=== PATIENT | male | born 1950 | race Hispanic/Latino ===

== ENCOUNTER → 2018-06-29 | Outpatient (CLI) | payer OTHER ==
[~2018-06-29] MED LIST: REGADENOSON 0.4 MG/5 ML PF SYG IVP SCH
== END | disposition home or self-care (01) ==
LOC: SHCH 08:30
PROVIDERS: ATTEND Internal Medicine Cardiovascular Disease
DX: M79.603 Pain in arm, unspecified (principal); Z95.1 Presence of aortocoronary bypass graft
CPT/HCPCS: 78452; 93017; 96374; A9500 ×2; J2785

== ENCOUNTER → 2020-05-12 | Outpatient (CLI) | payer OTHER | END | disposition home or self-care (01) | LOC: RAH 08:46 | PROVIDERS: ATTEND Physical Medicine & Rehabilitation | DX: M16.12 Unilateral primary osteoarthritis, left hip (principal); M99.04 Segmental and somatic dysfunction of sacral region; M85.88 Other specified disorders of bone density and structure, other site; M87.9 Osteonecrosis, unspecified; M47.817 Spondylosis without myelopathy or radiculopathy, lumbosacral region | CPT/HCPCS: 72190; 73502 ==

== ENCOUNTER 2020-12-02 06:26 | Observation (INO) | payer OTHER ==
[2020-11-30 10:25] LABS: BASOPHILS % (AUTO) 0.5 % (0.0-5.0); EOSINOPHILS % (AUTO) 1.3 % (0.0-8.0); HEMATOCRIT 44.9 % (42-54); LYMPHOCYTES % (AUTO) 39.5 % (21.0-51.0); MEAN CORPUSCULAR HEMOGLOBIN 30.3 pg (27.0-33.0); MEAN CORPUSCULAR HGB CONC 33.6 g/dL (32.0-36.0); MEAN CORPUSCULAR VOLUME 90.2 fL (79-99); MONOCYTES % (AUTO) 9.6 % (3.0-13.0); NEUTROPHILS % (AUTO) 48.9 % (40.0-77.0); PLATELET COUNT (AUTO) 193 K/uL (130-400); RED BLOOD CELL COUNT(AUTO) 4.98 MIL/uL (4.50-6.20); RED CELL DISTRIBUTION WIDTH 12.6 % (11.0-15.5); WHITE BLOOD COUNT (AUTO) 6.1 K/uL (4.8-10.8)
[2020-11-30 10:26] LABS: APPEARANCE,URINE Clear (CLEAR); BILIRUBIN,URINE Small (NEGATIVE); COLOR,URINE Dark Yellow (YELLOW); GLUCOSE, URINE (UA) Negative (NEGATIVE); KETONES,URINE Trace mg/dL (NEGATIVE); LEUKOCYTE ESTERASE ,URINE Trace (NEGATIVE); NITRATE,URINE Negative (NEGATIVE); OCCULT BLOOD,URINE Negative (NEGATIVE); PH,URINE 5.5 (5.0-8.0); PROTEIN,URINE Negative (NEGATIVE)
[2020-11-30 10:36] LABS: INR 1.03 (0.85-1.15); PROTHROMBIN TIME 11.2 SEC (9.6-11.6)
[2020-11-30 10:39] LABS: BACTERIA,URINE None Seen /HPF (None Seen); MUCUS,URINE Few LPF (None Seen); RBC,URINE 0-1 /HPF (0-1); SQUAMOUS EPITHELIAL CELL,UR 0-2 /HPF (0-2); WBC,URINE 0-1 /HPF (0-1)
[2020-11-30] MEDS: CEFAZOLIN SODIUM 1 GM VIAL IVP SCH (12:00)
[2020-12-01 13:59] VITALS: BP 178/88
[2020-12-02] VITALS (34 sets, daily range): BP systolic 109–162; BP diastolic 58–86
[~2020-12-02] VITALS: Ht 175.3 cm; Wt 89.0 kg
[~2020-12-02 06:26] MED LIST changes: +AEC81 PO; +AMLO-257 PO; +CLOP75TA32 PO; +EZET10TA48 PO; -REGADENOSON 0.4 MG/5 ML PF SYG IVP SCH; +SIMV-43 PO; +UBID200C18 PO
[2020-12-02] MEDS ORDERED: LACTATED RINGERS 1000ML 1,000 ML IV ONE (06:43)
[2020-12-02] MEDS ORDERED: TRANEXAMIC ACID 1000MG/10ML ONE (07:26)
[2020-12-02] MEDS ORDERED: CEFAZOLIN SODIUM 1 GM VIAL ONE (07:26)
[2020-12-02] MEDS ORDERED: ROPIVACAINE 0.5% 5MG/ML 30ML IJ ONE ×2 (07:41→07:48)
[2020-12-02] MEDS ORDERED: LIDOCAINE PF 100MG/5ML (2%) SYRINGE 5ML ONE (07:41)
[2020-12-02] MEDS ORDERED: MIDAZOLAM HCL 1 MG/ML 2ML VIAL ONE (07:42)
[2020-12-02] MEDS ORDERED: ROCURONIUM 10MG/1ML SYR 10 MG/ML ML ONE ×2 (07:42→09:11)
[2020-12-02] MEDS ORDERED: PROPOFOL 10 MG/ML 20ML VIAL IV ONE ×2 (07:42→12:04)
[2020-12-02] MEDS ORDERED: ONDANSETRON 4MG INJ ONE (07:43)
[2020-12-02] MEDS ORDERED: FENTANYL CITRATE PF 50 MCG/1 ML 2ML VIAL ONE (07:43)
[2020-12-02] MEDS ORDERED: KETAMINE 50MG/ML SYRINGE 50 MG/ML DISP.SYRIN IV ONE (07:48)
[2020-12-02] MEDS ORDERED: MAGNESIUM SULFATE 1 GM/2 ML VIAL ONE (07:48)
[2020-12-02] MEDS ORDERED: DEXAMETHASONE SOD PHOSPHATE 10MG/ML 1ML VIAL ONE (07:49)
[2020-12-02] MEDS: CEFAZOLIN SODIUM 1 GM VIAL IVP SCH ×2 (08:54→17:45)
[2020-12-02] MEDS ORDERED: CEFAZOLIN SODIUM 1 GM VIAL IRRIG ONE (09:15)
[2020-12-02] MEDS ORDERED: EPHEDRINE SULFATE 50 MG/ML AMPULE ONE (09:40)
[2020-12-02] MEDS ORDERED: KETOROLAC 30MG VIAL (30MG/ML) ONE (11:18)
[2020-12-02] MEDS ORDERED: GLYCOPYRROLATE 1 MG/5 ML SYRINGE ONE (11:21)
[2020-12-02] MEDS ORDERED: NEOSTIGMINE 5MG/5ML SYR IV ONE (11:21)
[2020-12-02] MEDS ORDERED: LIDOCAINE HCL-MPF 1% 2ML VIAL IV PRN (11:30)
[2020-12-02] MEDS ORDERED: TRAMADOL HCL 50 MG TABLET PO PRN (11:30)
[2020-12-02] MEDS: ACETAMINOPHEN 500 MG TABLET PO SCH ×2 (11:30→21:11)
[2020-12-02] MEDS ORDERED: DiphenhydrAMINE HCL 50 MG/ML VIAL IVP PRN (11:30)
[2020-12-02] MEDS ORDERED: FERROUS FUMARATE 324 MG TABLET PO PRN (11:30)
[2020-12-02] MEDS ORDERED: POTASSIUM CHLORIDE 20MEQ/100ML 100 ML IV PRN (11:30)
[2020-12-02] MEDS ORDERED: CALCIUM CARB 500MG PO PRN (11:30)
[2020-12-02] MEDS ORDERED: POTASSIUM CHLORIDE 10% ELIXIR 20 MEQ/15 ML UDCUP PO PRN (11:30)
[2020-12-02] MEDS ORDERED: OXYCODONE HCL 5 MG TAB PO PRN ×2 (11:30)
[2020-12-02] MEDS ORDERED: KCL 20 MEQ ERTAB PO PRN (11:30)
[2020-12-02] MEDS ORDERED: KETOROLAC 15MG/ML VIAL (15MG/ML) IV PRN (11:30)
[2020-12-02] MEDS: 0.9%NACL 1000ML 1,000 ML IV SCH ×2 (11:30→21:14)
[2020-12-02] MEDS ORDERED: ONDANSETRON 4MG INJ IVP PRN (11:30)
[2020-12-02] MEDS ORDERED: MEPERIDINE-PF 25 MG/ML SYG ONE ×2 (12:56→14:07)
[2020-12-02] MEDS ORDERED: EZETIMIBE 10 MG TAB PO SCH (21:00)
[2020-12-02] MEDS ORDERED: SIMVASTATIN 20 MG TABLET PO SCH (21:00)
[2020-12-02] MEDS: PREGABALIN 25 MG CAP PO SCH (21:10)
[2020-12-02] MEDS: ASPIRIN 81 MG EC TAB PO SCH (21:11)
[2020-12-02] MEDS: CELECOXIB 200 MG CAP PO SCH (21:11)
[2020-12-02] MEDS: FAMOTIDINE 20MG TAB PO SCH (21:11)
[2020-12-03 00:13] VITALS: BP 136/79
[2020-12-03] MEDS: CEFAZOLIN SODIUM 1 GM VIAL IVP SCH (00:29)
[2020-12-03] MEDS: ACETAMINOPHEN 500 MG TABLET PO SCH ×2 (04:12→11:30)
[2020-12-03 04:25] VITALS: BP 119/70
[2020-12-03 05:12] LABS: HEMATOCRIT 35.5 % (42-54); MEAN CORPUSCULAR HEMOGLOBIN 30.4 pg (27.0-33.0); MEAN CORPUSCULAR HGB CONC 33.8 g/dL (32.0-36.0); MEAN CORPUSCULAR VOLUME 89.9 fL (79-99); RED BLOOD CELL COUNT(AUTO) 3.95 MIL/uL (4.50-6.20); RED CELL DISTRIBUTION WIDTH 12.3 % (11.0-15.5); WHITE BLOOD COUNT (AUTO) 8.7 K/uL (4.8-10.8)
[2020-12-03 05:34] LABS: CREATININE 0.9 mg/dL (0.5-1.5); POTASSIUM 4.2 mmol/L (3.5-5.1)
[2020-12-03 07:30] VITALS: BP 130/69
[2020-12-03] MEDS: 0.9%NACL 1000ML 1,000 ML IV SCH (07:30)
[2020-12-03] MEDS ORDERED: CLOPIDOGREL 75MG TAB PO SCH (09:00)
[2020-12-03] MEDS ORDERED: TAMSULOSIN HCL 0.4 MG CAP.ER.24H PO SCH (09:00)
[2020-12-03] MEDS ORDERED: POLYETHYLENE GLYCOL 3350 17 GM POWD.PACK PO SCH (09:00)
[2020-12-03] MEDS ORDERED: ASPIRIN 81 MG EC TAB PO SCH (09:00)
[2020-12-03] MEDS ORDERED: AMLODIPINE 5 MG TAB PO SCH (09:00)
[2020-12-03] MEDS: CELECOXIB 200 MG CAP PO SCH (10:08)
[2020-12-03] MEDS: ASPIRIN 81 MG EC TAB PO SCH (10:08)
[2020-12-03] MEDS: PREGABALIN 25 MG CAP PO SCH (10:09)
[2020-12-03] MEDS: FAMOTIDINE 20MG TAB PO SCH (10:09)
[2020-12-03 11:00] VITALS: BP 127/62
[2020-12-03 16:00] VITALS: BP 123/65
[2020-12-03] MEDS ORDERED: HYDR-4060 PO (16:20)
[2020-12-03] MEDS ORDERED: AEC81 PO (16:20)
[2020-12-05] MEDS ORDERED: BISACODYL 10 MG SUPP.RECT RC PRN (11:30)
== END 2020-12-03 19:35 | disposition home health service (06) ==
LOC: DAH 06:26 → DAHIP 06:27 → 3DH 15:46
PROVIDERS: ADMIT Orthopaedic Surgery; ATTEND Orthopaedic Surgery
DX: M16.12 Unilateral primary osteoarthritis, left hip (principal); Z20.822 Contact with and (suspected) exposure to COVID-19; M87.052 Idiopathic aseptic necrosis of left femur; I10 Essential (primary) hypertension; I25.10 Atherosclerotic heart disease of native coronary artery without angina pectoris; E78.5 Hyperlipidemia, unspecified; N40.1 Benign prostatic hyperplasia with lower urinary tract symptoms; M87.9 Osteonecrosis, unspecified; M25.852 Other specified joint disorders, left hip; R33.8 Other retention of urine; R26.9 Unspecified abnormalities of gait and mobility; R11.2 Nausea with vomiting, unspecified
CPT/HCPCS: 27130; 36415 ×2; 73503; 80048 ×2; 81001; 85025; 85027; 85610; 87088; 87635; 87641; 88305; 88311; 96361 ×3; 96374; 96375; 96376; 97039 ×2; 97116 ×2; 97161; 97530 ×2; A4215; A4216; A4221; A4222; A4223 ×3; A4600; A4606; A4649 ×5; A4663; A4930 ×3; A5120; A9272; C1713; C1776; C9803; G0378 ×31; J0690 ×5; J1100; J1885 ×2; J2001; J2175 ×2; J2250; J2405; J2704 ×2; J2710; J2795 ×2; J3010; J3475; J3490 ×4; J7030; J7120 ×2

== ENCOUNTER 2020-12-06 22:51 | Emergency (ER) | payer OTHER ==
[~2020-12-06] VITALS: Ht 175.3 cm; Wt 88.5 kg
[~2020-12-06 22:51] MED LIST changes: +HYDR-4060 PO
[2020-12-06 23:39] LABS: BASOPHILS % (AUTO) 0.5 % (0.0-5.0); EOSINOPHILS % (AUTO) 1.9 % (0.0-8.0); HEMATOCRIT 37.3 % (42-54); LYMPHOCYTES % (AUTO) 25.9 % (21.0-51.0); MEAN CORPUSCULAR HEMOGLOBIN 30.7 pg (27.0-33.0); MEAN CORPUSCULAR HGB CONC 34.3 g/dL (32.0-36.0); MEAN CORPUSCULAR VOLUME 89.4 fL (79-99); MONOCYTES % (AUTO) 12.3 % (3.0-13.0); NEUTROPHILS % (AUTO) 59.2 % (40.0-77.0); PLATELET COUNT (AUTO) 209 K/uL (130-400); RED BLOOD CELL COUNT(AUTO) 4.17 MIL/uL (4.50-6.20); RED CELL DISTRIBUTION WIDTH 12.7 % (11.0-15.5); WHITE BLOOD COUNT (AUTO) 8.8 K/uL (4.8-10.8)
[2020-12-06 23:44] VITALS: BP 168/81
[2020-12-06 23:49] LABS: POTASSIUM 4.1 mmol/L (3.5-5.1)
[2020-12-06 23:56] LABS: ALBUMIN 3.4 g/dL (3.5-5.0); BILIRUBIN,TOTAL 0.6 mg/dL (0.2-1.0); TOTAL PROTEIN, SERUM 7.9 g/dL (6.0-8.3)
[2020-12-07 01:00] LABS: APPEARANCE,URINE Cloudy (CLEAR); BILIRUBIN,URINE Small (NEGATIVE); GLUCOSE, URINE (UA) Negative (NEGATIVE); KETONES,URINE Negative (NEGATIVE); LEUKOCYTE ESTERASE ,URINE Moderate (NEGATIVE); NITRATE,URINE Positive (NEGATIVE); OCCULT BLOOD,URINE Large (NEGATIVE); PH,URINE 6.5 (5.0-8.0); PROTEIN,URINE 300 mg/dL (NEGATIVE)
[2020-12-07 01:02] LABS: COLOR,URINE Brown (YELLOW)
[2020-12-07 01:07] VITALS: BP 153/75
[2020-12-07 01:12] LABS: BACTERIA,URINE Few /HPF (None Seen); RBC,URINE Full Field /HPF (0-1); SQUAMOUS EPITHELIAL CELL,UR Rare /HPF (0-2)
[2020-12-07 02:31] VITALS: BP 164/74
[2020-12-07 03:11] LABS: HEMATOCRIT 36.7 % (42-54); MEAN CORPUSCULAR HEMOGLOBIN 31.5 pg (27.0-33.0); MEAN CORPUSCULAR HGB CONC 34.6 g/dL (32.0-36.0); MEAN CORPUSCULAR VOLUME 91.1 fL (79-99); RED BLOOD CELL COUNT(AUTO) 4.03 MIL/uL (4.50-6.20); RED CELL DISTRIBUTION WIDTH 12.6 % (11.0-15.5); WHITE BLOOD COUNT (AUTO) 8.9 K/uL (4.8-10.8)
[2020-12-07 03:55] VITALS: BP 148/85
== END 2020-12-07 04:43 | disposition home or self-care (01) ==
LOC: EDH 22:51
DX: R31.9 Hematuria, unspecified (principal); I25.10 Atherosclerotic heart disease of native coronary artery without angina pectoris; Z79.82 Long term (current) use of aspirin; Z79.899 Other long term (current) drug therapy
CPT/HCPCS: 36415; 51702; 80053; 81001; 85025; 85027; 87077; 87088; 87186

== ENCOUNTER → 2021-11-01 | Outpatient (CLI) | payer OTHER | END | disposition home or self-care (01) | LOC: RAH 09:01 | PROVIDERS: ATTEND Physical Medicine & Rehabilitation | DX: M25.552 Pain in left hip (principal); Z96.642 Presence of left artificial hip joint | CPT/HCPCS: 73502 ==

== ENCOUNTER → 2021-11-03 | Outpatient (CLI) | payer OTHER | END | disposition home or self-care (01) | LOC: RAH 08:48 | PROVIDERS: ATTEND Physical Medicine & Rehabilitation | DX: K40.90 Unilateral inguinal hernia, without obstruction or gangrene, not specified as recurrent (principal); R10.32 Left lower quadrant pain | CPT/HCPCS: 76705; 76882 ==

== ENCOUNTER → 2021-12-17 | Outpatient (CLI) | payer OTHER ==
[~2021-12-17] MED LIST changes: +REGADENOSON 0.4 MG/5 ML PF SYG IVP SCH
== END | disposition home or self-care (01) ==
LOC: SHCH 08:18
PROVIDERS: ATTEND Internal Medicine Cardiovascular Disease
DX: R94.39 Abnormal result of other cardiovascular function study (principal); R07.9 Chest pain, unspecified; Z95.1 Presence of aortocoronary bypass graft
CPT/HCPCS: 78452; 96374; 93017; J2785; A9500 ×2

== ENCOUNTER → 2023-02-08 | Outpatient (CLI) | payer OTHER ==
[~2023-02-08] MED LIST changes: -REGADENOSON 0.4 MG/5 ML PF SYG IVP SCH
== END | disposition home or self-care (01) ==
LOC: RAH 09:48
PROVIDERS: ATTEND Physician Assistant
DX: M16.0 Bilateral primary osteoarthritis of hip (principal); M25.551 Pain in right hip; M25.552 Pain in left hip
CPT/HCPCS: 73522

== ENCOUNTER → 2024-05-07 | Outpatient (CLI) | payer OTHER ==
[2024-05-07] MEDS: REGADENOSON 0.4 MG/5 ML PF SYG IVP ONE (14:01)
--- NOTE | 2024-05-09 16:40 | HMCSR ---
APPROVED REPORT Height: 5 ft 8in Weight: 210 lbs TEST INDICATIONS CAD The imaging protocol used to acquire images was Rest Tc-99m/stress Tc-99m 1 day Consent: The procedure was explained and understood by the patient. Informerd consent was witnessed Nnamdi TRINH RN First, low dose rest was performed then high dose stress. RESTING DATA: The resting ekg shows: NSR, RBBB Rest SPECT myocardial perfusion imaging was performed in supine position 76 minutes following the int ravenous injection of 11.2 mCi of Tc-99 Sestamibi. Time of rest injection: 09:05: Date: 05/07/2024 Time of rest imagin:21: Date: 05/07/2024 PHARMACOLOGIC STRESS: Pharmacologic stress test was performed by injecting regadenoson 0.4 mg IV push followed by the intra venous injection of 32.4 mCi of Tc-99 Sestamibi. Time of stress injection: 10:46: Date: 05/07/2024 Time of stress imagin:12: Date: 05/07/2024 Heart Rate at time of stress injection: 45 bpm. Gated Stress SPECT was performed 86 minutes after stress injection. The images were gated to evaluate regional wall motion and calculate left ventricular ejection fracti on. STRESS DETAILS Reason for Termination: Infusion complete Stress Symptoms: No chest pain or symptoms Max HR Achieved: 62 bpm % of APMHR Achieved: 42 Max Blood Pressure: 123/58 mmHg Stress ECG: NSR, RBBB Study quality was good. Lung uptake was Normal. Artifact: No artifact LEFT VENTRICLE The left ventricular ejection fraction was calculated to be 61%.TID = 0.88. IMPRESSION Equivocally normal pharmacologic nuclear stress test. Conclusion Equivocally normal [id number] stress test with an LVEF of 61% and a TID of 0.88 Small, subtle apical fixed defect suggestive of scar No reversible ischemia.
== END | disposition home or self-care (01) ==
LOC: SHCH 08:39
PROVIDERS: ATTEND Internal Medicine Cardiovascular Disease
DX: Z01.818 Encounter for other preprocedural examination (principal); I45.10 Unspecified right bundle-branch block; I25.10 Atherosclerotic heart disease of native coronary artery without angina pectoris
CPT/HCPCS: 78452; 93017; J2785; A9500 ×2

== ENCOUNTER 2024-11-14 08:14 | Day surgery (SDC) | payer OTHER ==
[2024-11-12 14:17] LABS: IMMATURE GRANULOCYTE ABSOLUTE 0.01 K/uL (0-1); NUCLEATED RED BLOOD CELLS 0.0 % (0.0-0.19); PLATELET COUNT (AUTO) 195 K/uL (130-400); RED BLOOD CELL COUNT(AUTO) 4.62 MIL/uL (4.50-6.20); RED CELL DISTRIBUTION WIDTH 12.9 % (11.0-15.5); WHITE BLOOD COUNT (AUTO) 6.9 K/uL (4.8-10.8)
[2024-11-12 14:29] VITALS: BP 154/69; PULSE 60; RESP 18; TEMP 98.2
[2024-11-12 14:30] LABS: APPEARANCE,URINE CLEAR (CLEAR); CREATININE 0.9 mg/dL (0.5-1.3); GLOMERULAR FILTR. RATE CALC 91.0 mL/min (>90); GLUCOSE, URINE (UA) NEGATIVE (NEGATIVE); GLUCOSE,RANDOM 94.0 mg/dL (70-105); LEUKOCYTE ESTERASE ,URINE NEGATIVE Leu/uL (NEGATIVE); NITRATE,URINE NEGATIVE (NEGATIVE); OCCULT BLOOD,URINE NEGATIVE (NEGATIVE); SODIUM SERUM 140.0 mmol/L (136-145); UREA NITROGEN, BLOOD 17.0 mg/dL (7-18)
[2024-11-12 14:40] LABS: INR 1.02 (0.85-1.15)
[2024-11-12 14:43] LABS: ADD UA MICROSCOPIC NO
--- NOTE | 2024-11-13 08:18 | EKG ---
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
--- NOTE | 2024-11-13 12:49 | HMCIMG ---
EXAM: CR Chest, single view. CLINICAL HISTORY: Preop. COMPARISON: None FINDINGS: The lungs show no infiltrate or other acute findings. No pleural effusion or pneumothorax. Poststernotomy status. The cardiomediastinal silhouette is within normal limits. No acute osseous abnormality. IMPRESSION: Poststernotomy status. No evidence of acute cardiopulmonary process. /Helen
[~2024-11-14] VITALS: Ht 177.8 cm; Wt 92.2 kg
[2024-11-14] VITALS (10 sets, daily range): BP systolic 113–147; BP diastolic 60–77; PULSE 51–63; RESP 16–20; TEMP 97.3–98.2
[~2024-11-14 08:14] MED LIST changes: -AEC81 PO; +ASPI-1443 PO; -EZET10TA48 PO; +EZET10TA80 PO; -HYDR-4060 PO; +LOSA50TA64 PO; +MVI PO; +ROBITUSSIN PO; -SIMV-43 PO; +SIMV-46 PO
[2024-11-14] MEDS: 0.9%NACL 1000ML 1,000 ML IV SCH (08:51)
[2024-11-14] MEDS ORDERED: IOHEXOL 350 MG/ML 100ML INFUS..BTL IV ONE ×4 (13:29→15:25)
[2024-11-14] MEDS ORDERED: LIDOCAINE HCL 400MG/20ML VIAL ONE (13:29)
[2024-11-14] MEDS ORDERED: HEParin-NS 1,000 UNIT/500 ML 500 ML IV ONE ×2 (13:29→13:35)
[2024-11-14] MEDS ORDERED: NITROGLYCERIN 50MG VIAL ONE (13:30)
[2024-11-14] MEDS ORDERED: MIDAZOLAM HCL 1 MG/ML 2ML VIAL ONE (13:51)
[2024-11-14] MEDS ORDERED: IOHEXOL-350 50ML VIAL IV ONE (14:04)
[2024-11-14] MEDS ORDERED: ASPIRIN 325MG EC TAB PO ONE (15:01)
[2024-11-14] MEDS ORDERED: BIVALIRUDIN 250 MG/VIAL IV ONE ×2 (15:01→15:46)
[2024-11-14] MEDS ORDERED: IOHEXOL-350 75 ML VIAL IV ONE (15:24)
[2024-11-14] MEDS ORDERED: NITROGLYCERIN 4.9GM SPRAY 60 SPRAY/BOT SPRY TL ONE (15:25)
[2024-11-14] MEDS ORDERED: GLUCAGON 1MG KIT 1 MG ML IM PRN (16:30)
[2024-11-14] MEDS ORDERED: DEXTROSE 50%-WATER 50 ML DISP.SYRIN IV PRN (16:30)
[2024-11-14] MEDS ORDERED: 0.9%NACL 1000ML 1,000 ML IV SCH (16:30)
--- NOTE | 2024-11-14 17:20 | PRN ---
DATE OF PROCEDURE: 11/14/2024 PROCEDURE PERFORMED: LEFT HEART CATHETERIZATION, LEFT VENTRICULOGRAM, LEFT AND RIGHT SELECTIVE CORONARY ANGIOGRAMS, INJECTION OF HERNANDEZ GRAFT TO THE LAD, INJECTION OF SAPHENOUS VEIN GRAFT TO THE OM2 (OCCLUDED), INJECTION OF SAPHENOUS VEIN GRAFT TO THE OM3 (OCCLUDED), INJECTION OF SAPHENOUS VEIN GRAFT TO THE PDA (OCCLUDED), INJECTION OF SAPHENOUS VEIN GRAFT TO THE DIAGONAL ONE, PTCA/MANI TO THE BODY OF THE SAPHENOUS VEIN GRAFT TO THE DIAGONAL ONE WITH A 3.5 X 18 XIENCE SKYPOINT MANI, PTCA/MANI TO THE DISTAL RCA WITH A 3.0 X 15 XIENCE SKYPOINT MANI, RIGHT COMMON FEMORAL ANGIOGRAM, PERCLOSE SUTURE CLOSURE OF THE RIGHT COMMON FEMORAL ARTERY, AND CONSCIOUS SEDATION SALES COUNSELOR: PARKER HORVATH MD, [facility] INDICATION: RECURRENT ANGINA POST BYPASS, ABNORMAL LEXISCAN CARDIOLITE STRESS TEST 05/07/2024 WITH ANTERIOR APICAL AND ANTEROLATERAL ISCHEMIA AND GATED EF OF 61%. PROCEDURE NOTE: After informed consent was obtained the patient was prepped and draped in the usual sterile fashion. A 6 [place]ian arterial sheath was inserted in the right femoral artery using a modified Seldinger technique with a front wall, first pass puncture. This was performed after fluoroscopic identification of bony landmarks to facilitate a more accurate puncture of the right common femoral artery. The arterial sheath was aspirated and flushed. A 6 Liberian pigtail catheter was then advanced over a J-tipped guidewire to the ascending aorta and was prolapsed into the left ventricle. The catheter was aspirated and flushed and pressure measurements were obtained. A left ventriculogram was then performed in a 30 REYNOLDS projection. A pullback procedure was then performed, and this catheter was removed over a J-tipped guidewire. A 6F JL-4 was then advanced to the ascending aorta over a J-tipped guidewire, was aspirated and flushed, and was used for selective left coronary angiograms in multiple obliquities. A JR-4 was advanced in a similar fashion to the ascending aorta over a J-tipped guidewire and was used for selective right coronary angiograms in multiple obliquities, injection of the saphenous vein graft to the OM2, injection of the saphenous vein graft to the OM3, injection of the saphenous vein graft to the diagonal one, injection of the saphenous vein graft to the PDA, and injection of the HERNANDEZ graft IV. Findings were as outlined below. PERCUTANEOUS CORONARY INTERVENTION: A decision was made to intervene to the distal RCA 95% stenosis, and a 6F JR4 guiding catheter and a 300 cm 0.014 in runthrough wire was used for the intervention. Due to extensive plaquing throughout the RCA and calcification a GuideLiner was required for support. A 3.0 x 15 NC Euphora was used to pre dilate followed by a 3.0 x 15 Xience Skypoint MANI to 16 atmospheres. This resulted in a 0% residual. Subsequently a six Liberian LCB guide catheter was used to intervene on a saphenous vein graft to the diagonal one to a 95% mid- body stenosis. This was pre-dilated with a 2.75 x 15 NC Euphora (required a GuideLiner extension to traverse) followed by a 3.5 x 18 mm Xience farzad point MANI to a 0% residual. A right common femoral angiogram was performed to assess suitability for P erclose suture closure and the Perclose device was deployed in standard fashion. Perclose suture closure was successful without bleeding or hematoma. The patient tolerated the procedure well and was returned to the holding area in stable condition. FINDINGS: LEFT HEART HEMODYNAMICS: The patient's LVEDP was 12 mmHg prior to LV-gram and unchanged after the LV- gram. There was no aortic valve gradient on pullback. LEFT VENTRICULOGRAM: A left ventriculogram in a 30 degree REYNOLDS projection demonstrated normal wall motion with an LVEF of 70%. There was no angiographic MR. CORONARY ANGIOGRAM: LEFT MAIN: The left main coronary was normal. LEFT ANTERIOR DESCENDING: The LAD was occluded just beyond the proximal segment. There was a widely patent large HERNANDEZ graft to the mid LAD which perfused a normal-appearing distal and mid LAD segment. There was excellent surgical revascularization of the LAD. The saphenous vein graft to the diagonal one had a 95% stenosis in the midbody. LEFT CIRCUMFLEX: It had a small OM2 and OM3 distal to this mid stenosis. The OM1 was tiny. The OM2 had a 90% stenosis at its ostium and was small. The OM3 had a nubbin of an occluded saphenous vein graft to the OM3 branch. The left circumflex system appeared small for intervention. The saphenous vein graft to the OM2 was chronically occluded, the saphenous vein graft to the OM3 was chronically occluded. RAMUS INTERMEDIATE BRANCH: There was no ramus intermediate branch. RIGHT CORONARY ARTERY: The RCA was dominant and had a 40% proximal, 40% diffuse mid, and 95% distal stenosis. The RCA had sections of patulous dilation. The PDA was diffusely 99- 100% occluded. The saphenous vein graft to the PDA was chronically occluded. There was a fan of PLV branches, numbering 3-4 which appeared suitable in size and distribution for revascularization with PCI to the distal RCA. IMPRESSION: Severe three-vessel menominee coronary artery disease. 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 95% stenosis in the midbody of the saphenous vein graft to the diagonal one. Patent HERNANDEZ to to the LAD with excellent surgical revascularization of the LAD. Successful PTCA/MANI to the midbody of the SVG-diagonal one with a 3.5 x 18 Xience Skypoint MANI. Successful PTCA/MANI to the distal RCA with a 3.0 x 15 mm Xience Skypoint MANI RECOMMENDATION: Routine dual antiplatelet therapy for one year. Previously the patient had been on dual antiplatelet therapy because of the presence of diffuse menominee and graft vessels CAD. COMPLICATIONS OF PROCEDURE: None, the patient tolerated the procedure well and was returned to his room in stable condition. HEMOSTASIS: Perclose suture closure successful without bleeding or hematoma. ESTIMATED BLOOD LOSS: 10 mL. CONTRAST TOTAL: 340 mL. PARKER HORVATH MD Nov 14, 2024 17:20
== END 2024-11-14 20:39 | disposition home or self-care (01) ==
LOC: DAH 08:14
PROVIDERS: ATTEND Internal Medicine Cardiovascular Disease
DX: R94.39 Abnormal result of other cardiovascular function study (principal); I25.708 Atherosclerosis of coronary artery bypass graft(s), unspecified, with other forms of angina pectoris; I25.118 Atherosclerotic heart disease of native coronary artery with other forms of angina pectoris; I44.0 Atrioventricular block, first degree; R93.1 Abnormal findings on diagnostic imaging of heart and coronary circulation; I10 Essential (primary) hypertension; E78.5 Hyperlipidemia, unspecified; Z79.01 Long term (current) use of anticoagulants; Z79.02 Long term (current) use of antithrombotics/antiplatelets; Z79.82 Long term (current) use of aspirin; Z79.899 Other long term (current) drug therapy
CPT/HCPCS: 80048; 83880; 85025; 85610; 85730; 81003; 36415; 71045; 93005; 93459; 99156; 99157 ×5; C9600; C1769 ×2; C1887 ×4; C1894 ×2; C1725 ×2; C1760; C1884; C1874 ×2; J3010 ×2; J3490 ×2; J7030; J1644 ×3; J2250; J0583 ×2; Q9967 ×4; A4215; A4222; A4221; A4663; A4216; A4606; C9604; Q9965 ×4; A4223 ×3